=== PATIENT | female | born 1965 ===

== ENCOUNTER 2019-02-07 12:19 | Outpatient (CLI) | payer OTHER | END 2019-02-07 12:35 | disposition home or self-care (01) | LOC: LAB 12:19 | DX: E11.9 Type 2 diabetes mellitus without complications (principal); N30.00 Acute cystitis without hematuria; I10 Essential (primary) hypertension; R31.21 Asymptomatic microscopic hematuria ==

== ENCOUNTER 2020-05-30 13:16 | Inpatient (IN) | payer OTHER ==
[~2020-05-30] VITALS: Ht 152.4 cm; Wt 101.2 kg
[2020-05-30] MEDS ORDERED: OMEPRAZOLE MAGN20 MG (13:39)
[2020-05-30] MEDS ORDERED: ALLOPURINOL100 MG (13:40)
[2020-05-30] MEDS ORDERED: ZETIA10 MG (13:40)
[2020-05-30] MEDS ORDERED: LASIX20 MG (13:41)
[2020-05-30] MEDS ORDERED: DERMACINRX5000 UNIT (13:41)
[2020-05-30] MEDS ORDERED: JANTOVEN3 MG (13:42)
[2020-05-30] MEDS ORDERED: SODIUM BICARBO650 MG (13:42)
[2020-06-12] MEDS ORDERED: COUMADIN PO (10:55)
[2020-06-12] MEDS ORDERED: PROTONIX40 MG PO (10:56)
[2020-06-12] MEDS ORDERED: ZETIA10 MG PO (10:56)
[2020-06-12] MEDS ORDERED: B Complex CAPSULE PO (10:56)
[2020-06-12] MEDS ORDERED: JANTOVEN3 MG PO (10:58)
== END 2020-06-12 11:33 | disposition home or self-care (01) | DRG 673 ==
LOC: ER 13:16 → MEDJ 16:57 → SEC-K 16:57 → MEDJ 05-31 01:34
PROVIDERS: Radiology Vascular & Interventional Radiology; ADMIT Internal Medicine; ATTEND Internal Medicine
PROC: 30233N1 Transfusion of Nonautologous Red Blood Cells into Peripheral Vein, Percutaneous Approach (ICD-10-PCS; 2020-05-31)
PROC: BW21ZZZ Computerized Tomography (CT Scan) of Abdomen and Pelvis (ICD-10-PCS; 2020-05-31)
PROC: 02H633Z Insertion of Infusion Device into Right Atrium, Percutaneous Approach (ICD-10-PCS; 2020-06-03)
PROC: B24BZZZ Ultrasonography of Heart with Aorta (ICD-10-PCS; 2020-06-03)
PROC: B518ZZA Fluoroscopy of Superior Vena Cava, Guidance (ICD-10-PCS; 2020-06-03)
PROC: 0JH63XZ Insertion of Tunneled Vascular Access Device into Chest Subcutaneous Tissue and Fascia, Percutaneous Approach (ICD-10-PCS; principal; 2020-06-03 17:50)
PROC: 5A1D70Z Performance of Urinary Filtration, Intermittent, Less than 6 Hours Per Day (ICD-10-PCS; 2020-06-07)
DX: I13.11 Hypertensive heart and chronic kidney disease without heart failure, with stage 5 chronic kidney disease, or end stage renal disease (principal); N18.6 End stage renal disease; E11.65 Type 2 diabetes mellitus with hyperglycemia; Z99.2 Dependence on renal dialysis; Z79.4 Long term (current) use of insulin; Z79.01 Long term (current) use of anticoagulants; Z20.822 Contact with and (suspected) exposure to COVID-19; Z95.2 Presence of prosthetic heart valve; D63.1 Anemia in chronic kidney disease